=== PATIENT | female | born 1950 | race Caucasian/White ===

== ENCOUNTER 2016-07-15 07:00 | Outpatient (CLI) | payer OTHER ==
[2013-10-02 19:07] VITALS: BP 169/96
[2016-07-15 07:48] LABS: eGFR (African) > 60; eGFR (Non-African) > 60
== END 2016-07-15 07:01 ==
LOC: LAB 07:00
PROVIDERS: ATTEND Family Medicine
DX: I10 Essential (primary) hypertension (principal)
CPT/HCPCS: 36415; 80048

== ENCOUNTER 2016-11-03 16:02 | Emergency (ER) | payer OTHER ==
--- NOTE | 2016-11-03 16:36 | ED Physician Documentation ---
General Adult - HISTORIAN Historian: patient - HPI Stated Complaint: racing heart Chief Complaint: General Adult Onset: hours Timing: still present Severity: moderate Further Comments: yes (Pt is a 66 yo female who comes to ER because of a rapid heart rate and feeling jittery. Pt presents with DN=[id number], and with elevated bp= 184/106. Pt denies chest pain, sob, n/v, abd pain, but says that she feels very jittery. Pt takes HCTZ for bp. Pt notes that she drank 3 cups of coffee earlier today.) - ROS CONST: other ("jittery") EYES/ENT: none CVS/RESP: other (racing heart) GI/: none MS/SKIN/LYMPH: none NEURO/PSYCH: other ("jittery") - PAST HX Past History: hypertension Allergies/Adverse Reactions: Allergies Allergy/AdvReac Type Severity Reaction Status Date / Time lisinopril Allergy Severe Tongue Verified 11/03/16 16:40 Swelling Home Medications: Ambulatory Orders Medication Instructions Recorded Hydrochlorothiazide 25 mg PO QDAY 11/03/16 [Hydrochlorothiazide] - SOCIAL HX Smoking History: cigarettes - FAMILY HX Family History: No - VITAL SIGNS Vital Signs: Vital Signs Temp Pulse Resp BP Pulse Ox 169/96 10/02/13 19:06 - REVIEWED ASSESSMENTS Nursing Assessment Reviewed: Yes Vitals Reviewed: Yes Progress - Progress Progress: NS 500 cc IVF Lopressor 50 mg po improved. - EKG/XRAY/CT EKG: rhythm (Sinus tachycardia, [id number]; possible LVH by voltage.) XRAY: chest (No acute pulmonary process.) General Adult Physical Exam - PHYSICAL EXAM GENERAL APPEARANCE: mild anxiety EENT: pharynx normal NECK: normal inspection, supple RESPIRATORY: no resp distress, chest non-tender, breath sounds normal CVS: reg rate & rhythm, heart sounds normal ABDOMEN: soft, no organomegaly, normal bowel sounds BACK: normal inspection, no CVA tenderness SKIN: warm/dry, normal color EXTREMITIES: non-tender, normal range of motion, no evidence of injury, no edema NEURO: oriented X3, motor nml, sensation nml, other (mild anxiety) Discharge Clincal Impression: Hypertension Qualifiers: Hypertension type: unspecified Qualified Code(s): I10 - Essential (primary) hypertension Referrals: Milo Beyer MD [Primary Care Provider] - Condition: Stable Disposition: 01 HOME, SELF-CARE Decision to Admit: NO Decision Time: 18:58
[2016-11-03] MEDS ORDERED: 0.9 % SODIUM CHLORIDE 500 ML IV ONE (16:41)
--- NOTE | 2016-11-03 17:02 | Diagnostic Imaging Report ---
[facility] [address] [facility].[address] [address] Report Submission Date: Nov 03, 2016 5:01:25 PM CDT Patient Study Name: JOSE LUIS ESTES Date: Nov 03, 2016 4:44:14 PM CDT Modality Type: CR Gender: F Description: CHEST : 52 Institution: [facility] Physician: CARLOS PEACOCK - ER Examination: Portable chest History: Chest discomfort Comparison exam: None provided Findings: Single view of the chest demonstrates a normal cardiac silhouette. Tortuous aorta. Lung francisco without focal infiltrate. No effusion. Osseous structures are appropriate for age. Impression: No acute pulmonary process. Electronically signed on Nov 03, 2016 5:01:25 PM CDT by: Ameya VALLE
[2016-11-03 17:13] LABS: EOSINOPHILS % 1.8 % (0.0-6.8); MEAN CORPUSCULAR HEMOGLOBIN 30.5 pg (28.0-34.0); MONOCYTES % 3.6 % (0.0-11.0); NEUTROPHILS # 6.8 # k/uL (1.4-7.7)
[2016-11-03 17:26] LABS: eGFR (African) > 60; eGFR (Non-African) > 60
[2016-11-03] MEDS ORDERED: METOPROLOL TARTRATE 50 MG TABLET PO ONE (18:00)
[2016-11-03 19:18] VITALS: BP 177/99
== END 2016-11-03 19:16 | disposition home or self-care (01) ==
LOC: ED 16:02 → EDSTATUS 16:03 → ED 19:16
DX: I10 Essential (primary) hypertension (principal)
CPT/HCPCS: 71010; 80053; 82550; 84484; 85025; 85379; 93005; J7060; 96360; 99283; S1016

== ENCOUNTER 2017-01-06 13:55 | Outpatient (CLI) | payer OTHER ==
[2017-01-06 14:48] LABS: eGFR (African) > 60; eGFR (Non-African) > 60
== END 2017-01-06 13:56 ==
LOC: LAB 13:55
PROVIDERS: ATTEND Family Medicine
DX: I10 Essential (primary) hypertension (principal); R73.9 Hyperglycemia, unspecified
CPT/HCPCS: 36415; 80048; 83036

== ENCOUNTER 2017-03-02 12:31 | Emergency (ER) | payer OTHER ==
--- NOTE | 2017-03-02 13:15 | ED Physician Documentation ---
General Adult - HISTORIAN Historian: patient - HPI Stated Complaint: nausea, cough Chief Complaint: General Adult Onset: hours Timing: still present Severity: moderate Further Comments: yes (Pt is a 66 yo female with nausea, cough, and slight sob this am while at work. Pt works in a warm environment, in a kitchen. Pt has felt like this before when she was dehydrated. Pt has had cough. No sore throat. No fever. Some nausea earlier today.) - ROS CONST: other (malaise) EYES/ENT: none CVS/RESP: cough GI/: nausea MS/SKIN/LYMPH: none - PAST HX Past History: other (anxiety, HTN) Allergies/Adverse Reactions: Allergies Allergy/AdvReac Type Severity Reaction Status Date / Time lisinopril Allergy Severe Tongue Verified 03/02/17 12:56 Swelling Home Medications: Ambulatory Orders Medication Instructions Recorded Azithromycin [Zithromax] 250 mg PO DAILY #6 tablet 03/02/17 - SOCIAL HX Smoking History: cigarettes - FAMILY HX Family History: No - VITAL SIGNS Vital Signs: Vital Signs Temp Pulse Resp BP Pulse Ox 99.1 F 96 H 16 141/84 97 03/02/17 12:51 03/02/17 13:02 03/02/17 13:02 03/02/17 13:02 03/02/17 13:02 - REVIEWED ASSESSMENTS Nursing Assessment Reviewed: Yes Vitals Reviewed: Yes Progress - Progress Progress: Influenza A&B - neg u/a - neg 1 L IVF improved Rx Azithromycin 250 mg. Take 2 tablet by mouth on day #1. Take one tablet by mouth once daily next 4 days. General Adult Physical Exam - PHYSICAL EXAM GENERAL APPEARANCE: moderate distress EENT: pharynx normal, dry mucous membranes NECK: normal inspection, supple RESPIRATORY: no resp distress, chest non-tender, other (cough) CVS: reg rate & rhythm, heart sounds normal ABDOMEN: soft, no organomegaly, normal bowel sounds BACK: normal inspection, no CVA tenderness SKIN: warm/dry, normal color EXTREMITIES: non-tender, normal range of motion, no evidence of injury NEURO: oriented X3, motor nml, sensation nml Discharge Clincal Impression: mild dehydration URI (upper respiratory infection) Qualifiers: URI type: unspecified URI Qualified Code(s): J06.9 - Acute upper respiratory infection, unspecified Prescriptions: Azithromycin [Zithromax] 250 mg PO DAILY #6 tablet Referrals: Milo Beyer MD [Primary Care Provider] - Condition: Good Disposition: 01 HOME, SELF-CARE Decision to Admit: NO Decision Time: 14:36
[2017-03-02] MEDS ORDERED: 0.9 % SODIUM CHLORIDE 1,000 ML IV ONE (13:22)
[2017-03-02 13:44] LABS: BASOPHILS % 0.8 (0.0-1.5); EOSINOPHILS % 1.5 % (0.0-6.8); MEAN CORPUSCULAR HEMOGLOBIN 30.2 pg (28.0-34.0); MEAN CORPUSCULAR VOLUME 88.3 fl (80.0-100.0); MONOCYTES % 5.6 % (0.0-11.0); NEUTROPHILS # 5.4 # k/uL (1.4-7.7)
[2017-03-02 14:00] LABS: eGFR (African) > 60; eGFR (Non-African) > 60
[2017-03-02 15:00] VITALS: BP 151/77
[2017-03-03 03:48] LABS: APPEARANCE,URINE CLEAR (CLEAR); COLOR,URINE YELLOW (YELLOW); OCCULT BLOOD,URINE TRACE-LYSED (NEGATIVE); UROBILINOGEN URINE 0.2 Eu (0.2-1.0)
== END 2017-03-02 14:52 | disposition home or self-care (01) ==
LOC: ED 12:31
DX: E86.0 Dehydration (principal); J06.9 Acute upper respiratory infection, unspecified
CPT/HCPCS: 80053; 81002; 85025; 87400; J7030; 96360; 99283; S1016

== ENCOUNTER 2017-03-06 12:49 | Outpatient (CLI) | payer OTHER ==
--- NOTE | 2017-03-06 13:34 | Diagnostic Imaging Report ---
KEVIN ISABEL [facility] [address] [facility].[address] [address] Report Submission Date: Mar 06, 2017 1:32:31 PM [employer] Patient Study Name: JOSE LUIS ESTES Date: Mar 06, 2017 1:10:12 PM [employer]AMMAL[employer] TE[employer]ER Modality Type: US Gender: F Description: US THYROID SOFT TISS HEAD/NCK : 52 Institution: [facility] Physician: KEVIN ISABEL Examination: Ultrasound thyroid History: Possible left thyroid nodule. Comparison exams: None available Findings: Right thyroid lobe measures 4.9 x 1.8 x 1.6 cm. Left thyroid lobe measures 5.5 x 2.9 x 3.1 cm. Diffuse inhomogeneous echogenicity bilaterally. Numerous nodular densities identified bilaterally. Largest on the right measures 1.1 cm. Largest on the left measures 3.6 x 2.6 x 2.5 cm. Peripheral echogenicity with central low attenuation and cysts. Isthmus measures 4.3 mm. Impression: Large complex left thyroid lobe nodule. Biopsy/aspiration recommended for cytologic evaluation. Numerous right thyroid nodules - follow as warranted. Electronically signed on Mar 06, 2017 1:32:31 PM MAMMALOGY TEACHER by: Ameya VALLE
== END 2017-03-06 12:50 ==
LOC: RAD 12:49
PROVIDERS: ATTEND Family Medicine
DX: E04.1 Nontoxic single thyroid nodule (principal)
CPT/HCPCS: 76536

== ENCOUNTER 2018-12-23 11:47 | Outpatient (CLI) | payer MEDICARE, OTHER ==
[2018-12-23 12:08] LABS: A1C 5.3 % (<5.7)
[2018-12-23 12:16] LABS: MAGNESIUM 2.1 mIU/l (1.6-2.3); eGFR (Non-African) > 60
== END 2018-12-23 11:52 ==
LOC: LAB 11:47
PROVIDERS: ATTEND Family Medicine
DX: I10 Essential (primary) hypertension (principal); R73.9 Hyperglycemia, unspecified; R53.1 Weakness
CPT/HCPCS: 36415; 80053; 83036; 83735

== ENCOUNTER 2018-12-24 09:25 | Outpatient (CLI) | payer MEDICARE, OTHER ==
--- NOTE | 2018-12-24 15:57 | Diagnostic Imaging Report ---
PATIENT MR#: [id number] PATIENT PATIENT NAME: JOSE LUIS ESTES DATE OF : 1950 REFERRING PHYSICIAN: Milo Beyer EXAM DATE: 12/24/2018 ACCESSION NUMBER: [id number] EXAM DESCRIPTION: CT ABD PELVIS W/ CON CLINICAL HISTORY: ABDOMINAL DISCOMFORT/ ABDOMINAL MASS IN RLQ. PT STATES WHEN SHE SITS AND CROSSES HE R LEGS SHE CAN FEEL A LUMP ON THE RT SIDE BUT NOT THE LEFT SIDE, CAUSES HER DISCOMFORT. NOTICED THE LUMP WITHIN THE LAST 4-6 MONTHS. TECHNIQUE: CT abdomen and pelvis following administration of IV contrast. 84 mL Omnipaque 350 were ad ministered IV. COMPARISON: No pertinent prior studies are available at this time. CT ABDOMEN WITH CONTRAST: Lung bases: Several nodules are noted within the right lower lobe measuring between 3 and 8 mm. At l east two left lower lobe nodules are noted, largest 3.5 mm. No lung base infiltrate or effusion. Paraesophageal lymph no de in the posterior mediastinum measures up to 1.6 cm. Liver: There is a 2.6 cm irregular hypodense mass in the hepatic dome which is concerning for metasta tic disease. Two similar 1.5 cm masses are noted in the inferior right hepatic lobe. No intrahepatic ductal dilation. Gallbladder: Normally distended. Pancreas: No pancreatic duct dilation. Bowel loops: Right lower quadrant inflammatory/neoplastic changes described below, without proximal s mall bowel obstruction. Multiple mesenteric lymph nodes. Spleen: Normal size. Calcified splenic granulomas. Adrenals: Normal size. Kidneys: No hydronephrosis. 4 mm left peripapillary stone versus early excretion of contrast. Aorta: Normal caliber. Multiple retroperitoneal enlarged lymph nodes measuring up to 2.1 cm. Peritoneum: No free air. Lumbar spine: Degenerative spondylotic changes at multiple levels, more pronounced at L4-5 and L5-S1. No suspicious lytic or blastic lesions are identified. CT PELVIS WITH CONTRAST: Colon: There is masslike enlargement of the cecal pole measuring 4.6 x 4.8 cm. There is mural thicken ing of the terminal ileum which may represent local infiltration or terminal ileitis. The appendix is also thickened, denny suring 1.2 cm diameter. This is likely due to local infiltration. Although appendicitis cannot entirely be excluded it is considered less likely. Bladder: Normally distended. Pelvic organs: Unremarkable. Peritoneum: No fluid. IMPRESSION: Findings are concerning for cecal mass, likely representing colon cancer, with thickening of the term inal ileum and appendix, suggesting local spread. Widely metastatic disease is suspected, given the appearance of se veral hepatic masses, multiple pulmonary nodules predominantly within the right lower lobe, and extensive retroperi toneal lymphadenopathy. Further evaluation with PET CT may reveal additional staging information. Findings were discussed with Dr. Milo Beyer by phone at the time of interpretation. Read by: Dr. Ravin Manzanares Transcribed by: Ravin Manzanares Transcribed Date: 12/24/2018 3:55:51 PM Electronically signed by: Dr. Ravin Manzanares Date signed: 12/24/2018 3:57:14 PM
== END 2018-12-24 09:35 ==
LOC: RAD 09:25
PROVIDERS: ATTEND Family Medicine
DX: R19.03 Right lower quadrant abdominal swelling, mass and lump (principal)
CPT/HCPCS: 74177; Q9967